=== PATIENT | female | born 1975 | race African-American/Black ===

== ENCOUNTER 2018-09-18 11:09 | Emergency (ER) | payer MEDICAID ==
[~2018-09-18] VITALS: Ht 154.9 cm; Wt 85.0 kg
[~2018-09-18 11:09] MED LIST: CLIN300C11 PO; DM/P295L17; IBUP-2030 PO; OMEP40CA34 PO; PROP10TA10 PO; [UNRECOGNIZED DRUG - CODE]
[2018-09-18] MEDS ORDERED: LORAZEPAM 2MG/ML CPJ IV STA (12:19)
[2018-09-18] MEDS ORDERED: FOLIC ACID 1 MG, THIAMINE HCL 100 MG, MVI, ADULT NO.1 10 ML in DEXTROSE 5% WATER 1,000 ML IV ONE ×4 (12:30)
[2018-09-18 12:44] LABS: HEMATOCRIT. 34.4 % (36.0-48.0); HEMOGLOBIN. 10.6 g/dL (12.0-16.0); MEAN CORPUSCULAR HEMOGLOBIN 26.3 pg (28.0-32.0); MEAN PLATELET VOLUME 8.4 fl (7.4-10.4); PLATELET 182 x1000/uL (130-400); RED BLOOD CELL COUNT 4.05 mill/uL (4.2-5.4); RED CELL DISTRIBUTION WIDTH 23.4 % (11.6-14.6)
[2018-09-18 12:45] LABS: CHLORIDE 97 mEq/L (98-107)
[2018-09-18 12:50] LABS: ETHANOL BLOOD < 10 mg/dL
[2018-09-18 12:59] LABS: *AMPHETAMINES SCREEN URINE NEGATIVE (NEGATIVE); *BENZODIAZEPINES SCREEN URINE NEGATIVE (NEGATIVE); *COCAINE SCREEN URINE NEGATIVE (NEGATIVE); METHADONE URINE SCREEN NEGATIVE (NEGATIVE); OPIATES URINE SCREEN NEGATIVE (NEGATIVE)
[2018-09-18 13:00] LABS: PHENCYCLIDINE URINE SCREEN NEGATIVE (NEGATIVE)
[2018-09-18 13:05] LABS: *BARBITURATES SCREEN URINE NEGATIVE (NEGATIVE)
[2018-09-18 13:06] LABS: CANNABINOID URINE SCREEN PRESUMTIVE POSITIVE (NEGATIVE)
[2018-09-18 13:19] LABS: PLATELET ESTIMATE NORMAL
[2018-09-18 16:30] VITALS: BP 117/74
[2018-09-18] MEDS ORDERED: ONDANSETRON HCL 4MG/2ML INJ IV NR (16:30)
[2018-09-18] MEDS ORDERED: KETOROLAC 15MG/ML VIAL IV NR (16:30)
[2018-09-18] MEDS ORDERED: LORAZEPAM 2MG/ML CPJ IV ONE (17:00)
[2018-09-18] MEDS ORDERED: SODIUM CHLORIDE 0.9% 1,000 ML IV ONE (17:00)
[2018-09-18 18:26] LABS: CLARITY URINE CLOUDY (CLEAR); COLOR URINE YELLOW (YELLOW); KETONES URINE 3+ (NEGATIVE); LEUKOCYTE ESTERASE URINE NEGATIVE (NEGATIVE); NITRITE URINE NEGATIVE (NEGATIVE); OCCULT BLOOD URINE TRACE (NEGATIVE); PH URINE 6.5 (4.5-8.0); PROTEIN URINE 2+ (NEGATIVE); SPECIFIC GRAVITY URINE 1.013 (1.005-1.030)
== END 2018-09-18 19:52 | disposition home or self-care (01) ==
LOC: ER 11:09
DX: F10.239 Alcohol dependence with withdrawal, unspecified (principal); Y90.0 Blood alcohol level of less than 20 mg/100 ml; R11.2 Nausea with vomiting, unspecified; R74.0 Nonspecific elevation of levels of transaminase and lactic acid dehydrogenase [LDH]; K70.9 Alcoholic liver disease, unspecified; D64.9 Anemia, unspecified; F12.10 Cannabis abuse, uncomplicated; E87.1 Hypo-osmolality and hyponatremia; F17.200 Nicotine dependence, unspecified, uncomplicated; F31.9 Bipolar disorder, unspecified; Z88.6 Allergy status to analgesic agent
CPT/HCPCS: 36415; 80053; 80305; 80320; 81003; 85025; 93005; 96365; 96375; 96376; 99284; J1885; J2060; J3411; J3490; J7030; J7070; Z7610; G0480

== ENCOUNTER 2019-03-23 00:14 | Emergency (ER) | payer MEDICAID ==
[~2019-03-23] VITALS: Ht 154.9 cm; Wt 94.0 kg
[2019-03-23 01:12] LABS: BASOPHILS % 2.1 % (0.0-2.0); EOSINOPHILS % 2.8 % (0.0-5.0); HEMATOCRIT. 34.8 % (36.0-48.0); HEMOGLOBIN. 11.4 g/dL (12.0-16.0); MEAN CORPUSCULAR HEMOGLOBIN 28.7 pg (28.0-32.0); MEAN CORPUSCULAR VOLUME 87.6 fL (81.0-99.0); MEAN PLATELET VOLUME 8.6 fl (7.4-10.4); MONOCYTES % 7.8 % (2.0-8.0); NEUTROPHILS % 20.3 % (40.0-76.0); PLATELET 230 x1000/uL (130-400); RED BLOOD CELL COUNT 3.97 mill/uL (4.2-5.4); RED CELL DISTRIBUTION WIDTH 20.1 % (11.6-14.6)
[2019-03-23 01:19] LABS: CHLORIDE 112 mEq/L (98-107)
[2019-03-23 01:48] LABS: ETHANOL BLOOD 393 mg/dL
[2019-03-23 01:59] LABS: CLARITY URINE CLEAR (CLEAR); COLOR URINE YELLOW (YELLOW); KETONES URINE NEGATIVE (NEGATIVE); LEUKOCYTE ESTERASE URINE NEGATIVE (NEGATIVE); NITRITE URINE NEGATIVE (NEGATIVE); OCCULT BLOOD URINE TRACE (NEGATIVE); PH URINE 5.5 (4.5-8.0); PROTEIN URINE NEGATIVE (NEGATIVE); SPECIFIC GRAVITY URINE 1.017 (1.005-1.030); UROBILINOGEN URINE 0.2 E.U./dL (0.2-1.0)
[2019-03-23 02:17] LABS: *BARBITURATES SCREEN URINE NEGATIVE (NEGATIVE); *COCAINE SCREEN URINE NEGATIVE (NEGATIVE)
[2019-03-23 02:18] LABS: *AMPHETAMINES SCREEN URINE NEGATIVE (NEGATIVE); CANNABINOID URINE SCREEN NEGATIVE (NEGATIVE); METHADONE URINE SCREEN NEGATIVE (NEGATIVE); OPIATES URINE SCREEN NEGATIVE (NEGATIVE); PHENCYCLIDINE URINE SCREEN NEGATIVE (NEGATIVE)
[2019-03-23 02:25] LABS: *BENZODIAZEPINES SCREEN URINE PRESUMTIVE POSITIVE (NEGATIVE)
[2019-03-24] MEDS ORDERED: ACETAMINOPHEN 650MG/20.3ML UDC PO ONE (01:15)
[2019-03-24] MEDS ORDERED: CHLORDIAZEPOXIDE 25MG CAPSULE PO ONE (10:15)
[2019-03-24] MEDS ORDERED: ACETAMINOPHEN 325MG TABLET PO ONE ×2 (10:15→19:15)
[2019-03-24] MEDS: CHLORDIAZEPOXIDE 5 MG CAPSULE PO NR ×2 (10:35→10:39)
[2019-03-24] MEDS ORDERED: LORAZEPAM 1MG TABLET PO ONE (19:15)
[2019-03-25] MEDS ORDERED: LORAZEPAM 1MG TABLET PO ONE (04:15)
[2019-03-25 20:04] VITALS: BP 124/79
== END 2019-03-25 20:56 ==
LOC: ER 00:14
DX: F10.239 Alcohol dependence with withdrawal, unspecified (principal); Y90.0 Blood alcohol level of less than 20 mg/100 ml; T50.901A Poisoning by unspecified drugs, medicaments and biological substances, accidental (unintentional), initial encounter; Y92.9 Unspecified place or not applicable; R45.851 Suicidal ideations; F32.9 Major depressive disorder, single episode, unspecified; F20.9 Schizophrenia, unspecified; Z59.0 Homelessness; Z88.6 Allergy status to analgesic agent
CPT/HCPCS: 36415; 80053; 80305; 80320; 81003; 81025; 85025; 93005; 99284; Z7610; G0480

== ENCOUNTER 2022-05-20 15:25 | Emergency (ER) | payer MEDICAID, OTHER ==
[~2022-05-20] VITALS: Ht 154.9 cm; Wt 82.0 kg
[~2022-05-20 15:25] MED LIST changes: +ABIL5 PO; +ACET325T52 MT; +ASCO500T20 PO; +BUSP5TAB3 PO; -CLIN300C11 PO; -DM/P295L17; +FERR-63 PO; +FOLI-43 PO; +HYDR-4001 MT; -IBUP-2030 PO; +L25 PO; +MIRT-89 PO; +MULT-230 MT; -OMEP40CA34 PO; +PANT40TA51 MT; -PROP10TA10 PO; +SERT50TA PO; +THIA100T72 PO; -[UNRECOGNIZED DRUG - CODE]
[2022-05-20 15:30] VITALS: BP 127/89
== END 2022-05-20 16:53 | disposition left against medical advice (07) ==
LOC: ER 15:57
DX: Z53.21 Procedure and treatment not carried out due to patient leaving prior to being seen by health care provider (principal); I49.9 Cardiac arrhythmia, unspecified
CPT/HCPCS: 93005

== ENCOUNTER 2022-05-20 16:48 | Emergency (ER) | payer MEDICAID, OTHER ==
[~2022-05-20] VITALS: Ht 167.6 cm; Wt 85.0 kg
[2022-05-20 19:05] LABS: CHLORIDE 96 mEq/L (98-107)
[2022-05-20 19:06] LABS: BASOPHILS % 1.4 % (0.0-2.0); EOSINOPHILS % 0.6 % (0.0-5.0); HEMATOCRIT. 31.2 % (36.0-48.0); HEMOGLOBIN. 9.7 g/dL (12.0-16.0); LYMPHOCYTES % 24.2 % (20.0-50.0); MEAN CORPUSCULAR HEMOGLOBIN 25.2 pg (28.0-32.0); MONOCYTES % 10.1 % (2.0-8.0); NEUTROPHILS % 63.7 % (40.0-76.0); RED BLOOD CELL COUNT 3.85 mill/uL (4.2-5.4); RED CELL DISTRIBUTION WIDTH 25.3 % (11.6-14.6)
[2022-05-20 19:52] LABS: MEAN PLATELET VOLUME 9.3 fl (7.4-10.4); PLATELET 66 x1000/uL (130-400)
[2022-05-20] MEDS ORDERED: POTASSIUM CHLORIDE 20MEQ/PACKET PO ONE (20:15)
[2022-05-20 20:59] LABS: HCG SCREEN NEGATIVE
[2022-05-20] MEDS ORDERED: KETOROLAC 15MG/ML VIAL IV ONE (21:15)
[2022-05-20] MEDS ORDERED: SODIUM CHLORIDE 0.9% 1,000 ML IV ONE (21:15)
[2022-05-20] MEDS ORDERED: ONDANSETRON HCL 4MG/2ML INJ IV ONE (21:15)
[2022-05-20 21:53] VITALS: BP 97/65
[2022-05-20 23:09] LABS: CLARITY URINE CLEAR (CLEAR); COLOR URINE YELLOW (YELLOW); KETONES URINE TRACE (NEGATIVE); LEUKOCYTE ESTERASE URINE TRACE (NEGATIVE); NITRITE URINE NEGATIVE (NEGATIVE); OCCULT BLOOD URINE 1+ (NEGATIVE); PROTEIN URINE TRACE (NEGATIVE); SPECIFIC GRAVITY URINE 1.008 (1.005-1.030)
== END 2022-05-20 23:21 | disposition home or self-care (01) ==
LOC: ER 16:48
DX: E87.6 Hypokalemia (principal); M79.10 Myalgia, unspecified site; R11.2 Nausea with vomiting, unspecified; R42 Dizziness and giddiness; F31.9 Bipolar disorder, unspecified; F20.9 Schizophrenia, unspecified; F10.229 Alcohol dependence with intoxication, unspecified; Z79.899 Other long term (current) drug therapy; Y90.0 Blood alcohol level of less than 20 mg/100 ml
CPT/HCPCS: 36415; 70450; 71045; 80053; 81003; 83880; 84484; 84703; 85025; 93005; 96374; 96375; 99291; C1893; J1885; J2405; J7030; Z7610

== ENCOUNTER 2022-12-31 13:12 | Inpatient (IN) | payer MEDICAID, OTHER ==
[~2022-12-31] VITALS: Ht 154.9 cm; Wt 74.4 kg
[2022-12-31] MEDS ORDERED: MORPHINE SULFATE 4 MG/ML CPJ (NOT FOR IM USE) IV STA (14:19)
[2022-12-31] MEDS ORDERED: ONDANSETRON HCL 4MG/2ML INJ IV STA (14:19)
[2022-12-31] MEDS ORDERED: SODIUM CHLORIDE 0.9% 1,000 ML IV ONE (14:30)
[2022-12-31 14:57] LABS: HEMOGLOBIN. 8.5 g/dL (12.0-16.0); MEAN CORPUSCULAR HEMOGLOBIN 24.7 pg (28.0-32.0); MEAN CORPUSCULAR HGB CONC 30.5 g/dL (31.0-37.0); MEAN CORPUSCULAR VOLUME 81.1 fL (81.0-99.0); MEAN PLATELET VOLUME 9.4 fl (7.4-10.4); PLATELET 73 x1000/uL (130-400); RED BLOOD CELL COUNT 3.45 mill/uL (4.2-5.4); WHITE BLOOD COUNT 3.9 x1000/uL (4.5-11.0)
[2022-12-31 15:03] LABS: CHLORIDE 97 mEq/L (98-107); INDEX HEMOLYSI 1 (1-3); INDEX ICTERIC 1 (1-4); INDEX LIPEMIC 1 (1-3); POTASSIUM 3.4 mEq/L (3.5-5.1); SODIUM 131 mEq/L (136-145)
[2022-12-31 15:05] LABS: DIFFERENTIAL COMMENT 1
[2022-12-31 15:14] LABS: ALANINE AMINOTRANSFERASE 44 IU/L (13-61); ALBUMIN 3.6 g/dL (3.4-5.0); ASPARTATE AMINOTRANSFERASE 86 IU/L (15-37); BILIRUBIN TOTAL 0.7 mg/dL (0.1-1.0); CALCIUM 9.9 mg/dL (8.5-10.1); CARBON DIOXIDE 23 mEq/L (21-32); CREATININE 1.1 mg/dL (0.6-1.3); GLUCOSE 96 mg/dL (70-105); NT PRO B-TYPE NATRIURETIC PEP 73 pg/mL (5-125); PROTEIN TOTAL 8.5 g/dL (6.0-8.3); UREA NITROGEN BLOOD 17 mg/dL (7-21)
[2022-12-31 15:19] LABS: TROPONIN I HIGH SENSITIVITY < 4 ng/L (<54)
[2022-12-31 15:51] LABS: D-DIMER < 0.19 mg/L FEU (<0.50); INR 1.1; PARTIAL THROMBOPLASTIN TIME 24.3 sec (23.4-31.0); PROTHROMBIN TIME 11.7 sec (9.6-11.0)
[2022-12-31 15:52] LABS: ANISOCYTOSIS 4+; HYPOCHROMASIA 1+; NUCLEATED RED BLOOD CELLS 4 /100 WBC; PLATELET ESTIMATE DECREASED
[2022-12-31 16:19] LABS: HCG SCREEN NEGATIVE
[2022-12-31] MEDS ORDERED: MORPHINE SULFATE 4 MG/ML CPJ (NOT FOR IM USE) IV NR (17:30)
[2022-12-31] MEDS ORDERED: ONDANSETRON HCL 4MG/2ML INJ IV NR (17:30)
[2022-12-31] MEDS ORDERED: MORPHINE SULFATE 4 MG/ML CPJ (NOT FOR IM USE) IV ONE (22:00)
[2023-01-01] MEDS: TRAZODONE HCL 50MG TABLET PO SCH ×3 (02:39→21:55)
[2023-01-01 08:00] VITALS: BP 93/55; PULSE 71; RESP 18; TEMP 96
[2023-01-01] MEDS ORDERED: LORAZEPAM 2MG/ML CPJ IV PRN (08:15)
[2023-01-01] MEDS ORDERED: POTASSIUM CHLORIDE 20MEQ TABLET SR PO NR (08:15)
[2023-01-01] MEDS ORDERED: ONDANSETRON HCL 4MG/2ML INJ IV PRN (08:15)
[2023-01-01] MEDS ORDERED: NALOXONE HCL 0.4MG/ML VIAL IV PRN (09:45)
[2023-01-01 09:54] VITALS: BP 96/63; PULSE 82; RESP 18; TEMP 97.8
[2023-01-01] MEDS: FOLIC ACID 1MG TABLET PO SCH (10:53)
[2023-01-01] MEDS: THIAMINE HCL 100MG TABLET PO SCH (10:56)
[2023-01-01] MEDS: HYDROCODONE/ACETAMINOPHEN 10/325MG TABLET PO PRN ×3 (10:56→22:20)
[2023-01-01] MEDS: CEFTRIAXONE 1,000 MG in DEXTROSE 5% WATER 50 ML IV SCH (11:17)
[2023-01-01 12:00] VITALS: BP 91/85; PULSE 74; RESP 18; TEMP 97
[2023-01-01 12:47] LABS: BASOPHILS % 0.6 % (0.0-2.0); EOSINOPHILS % 2.3 % (0.0-5.0); HEMATOCRIT. 24.4 % (36.0-48.0); HEMOGLOBIN. 7.4 g/dL (12.0-16.0); LYMPHOCYTES % 26.4 % (20.0-50.0); MEAN CORPUSCULAR HEMOGLOBIN 24.2 pg (28.0-32.0); MEAN CORPUSCULAR HGB CONC 30.4 g/dL (31.0-37.0); MEAN CORPUSCULAR VOLUME 79.8 fL (81.0-99.0); MEAN PLATELET VOLUME 8.6 fl (7.4-10.4); MONOCYTES % 13.5 % (2.0-8.0); NEUTROPHILS % 57.2 % (40.0-76.0); PLATELET 85 x1000/uL (130-400); RED BLOOD CELL COUNT 3.05 mill/uL (4.2-5.4); WHITE BLOOD COUNT 3.5 x1000/uL (4.5-11.0)
[2023-01-01 12:52] LABS: DIFFERENTIAL COMMENT 1
[2023-01-01 12:53] LABS: ADD RBC MORPHOLOGY NO
[2023-01-01 12:57] LABS: CALCIUM 8.5 mg/dL (8.5-10.1); CHLORIDE 105 mEq/L (98-107); INDEX HEMOLYSI 1 (1-3); INDEX ICTERIC 1 (1-4); INDEX LIPEMIC 1 (1-3); POTASSIUM 3.2 mEq/L (3.5-5.1); SODIUM 135 mEq/L (136-145)
[2023-01-01 13:05] LABS: CARBON DIOXIDE 26 mEq/L (21-32); CREATININE 0.7 mg/dL (0.6-1.3); GLUCOSE 106 mg/dL (70-105); UREA NITROGEN BLOOD 11 mg/dL (7-21)
[2023-01-01 13:31] LABS: TROPONIN I HIGH SENSITIVITY < 4 ng/L (<54)
[2023-01-01 14:24] LABS: HEPATITIS B SURFACE ANTIGEN NEGATIVE
[2023-01-01 14:52] LABS: CLARITY URINE CLEAR (CLEAR); COLOR URINE YELLOW (YELLOW); GLUCOSE URINE NEGATIVE (NEGATIVE); KETONES URINE NEGATIVE (NEGATIVE); LEUKOCYTE ESTERASE URINE TRACE (NEGATIVE); NITRITE URINE NEGATIVE (NEGATIVE); OCCULT BLOOD URINE NEGATIVE (NEGATIVE); PROTEIN URINE NEGATIVE (NEGATIVE); SPECIFIC GRAVITY URINE 1.009 (1.005-1.030)
[2023-01-01 14:53] LABS: HEPATITIS C VIR.AB 0.11 INDEXVAL (0.00-0.80)
[2023-01-01 14:55] LABS: BACTERIA URINE 1+; RBC URINE 0-2 /hpf (0-2); SQUAMOUS EPITHELIAL CELL URINE 1+ /lpf (RARE/1+); YEAST URINE NONE SEEN
[2023-01-01 16:30] VITALS: BP 94/56; PULSE 92; RESP 18; TEMP 96.8
[2023-01-01 20:00] VITALS: BP 103/63; PULSE 80; RESP 18; TEMP 97.8
[2023-01-02] VITALS (12 sets, daily range): BP systolic 89–116; BP diastolic 47–79; PULSE 71–91; RESP 16–20; TEMP 96.8–98.4
[2023-01-02] MEDS: FOLIC ACID 1MG TABLET PO SCH (09:12)
[2023-01-02] MEDS: CEFTRIAXONE 1,000 MG in DEXTROSE 5% WATER 50 ML IV SCH (09:14)
[2023-01-02] MEDS: HYDROCODONE/ACETAMINOPHEN 10/325MG TABLET PO PRN ×3 (09:14→22:25)
[2023-01-02] MEDS: THIAMINE HCL 100MG TABLET PO SCH (09:15)
[2023-01-02] MEDS: TRAZODONE HCL 50MG TABLET PO SCH (21:40)
[2023-01-03] VITALS (7 sets, daily range): BP systolic 90–113; BP diastolic 45–60; PULSE 65–78; RESP 14–20; TEMP 97–98.8; O2SAT 96
[2023-01-03] MEDS: HYDROCODONE/ACETAMINOPHEN 10/325MG TABLET PO PRN ×2 (04:35→10:52)
[2023-01-03 05:49] LABS: CALCIUM 7.9 mg/dL (8.5-10.1); CARBON DIOXIDE 25 mEq/L (21-32); CHLORIDE 106 mEq/L (98-107); GLUCOSE 82 mg/dL (70-105); INDEX HEMOLYSI 1 (1-3); INDEX ICTERIC 1 (1-4); INDEX LIPEMIC 1 (1-3); POTASSIUM 3.6 mEq/L (3.5-5.1); SODIUM 134 mEq/L (136-145); UREA NITROGEN BLOOD 9 mg/dL (7-21)
[2023-01-03 05:58] LABS: CREATININE 0.6 mg/dL (0.6-1.3); TROPONIN I HIGH SENSITIVITY 4 ng/L (<54)
[2023-01-03 07:15] LABS: HEMATOCRIT. 28.3 % (36.0-48.0); MEAN CORPUSCULAR HGB CONC 31.7 g/dL (31.0-37.0); PLATELET 152 x1000/uL (130-400); RED BLOOD CELL COUNT 3.45 mill/uL (4.2-5.4); RED CELL DISTRIBUTION WIDTH 28.5 % (11.6-14.6)
[2023-01-03 07:46] LABS: DIFFERENTIAL COMMENT 1
[2023-01-03] MEDS: CEFTRIAXONE 1,000 MG in DEXTROSE 5% WATER 50 ML IV SCH (08:39)
[2023-01-03] MEDS: THIAMINE HCL 100MG TABLET PO SCH (08:40)
[2023-01-03] MEDS: FOLIC ACID 1MG TABLET PO SCH (08:40)
[2023-01-03 10:23] LABS: *AMPHETAMINES SCREEN URINE NEGATIVE (NEGATIVE); *BARBITURATES SCREEN URINE NEGATIVE (NEGATIVE); *BENZODIAZEPINES SCREEN URINE NEGATIVE (NEGATIVE); *COCAINE SCREEN URINE NEGATIVE (NEGATIVE); CANNABINOID URINE SCREEN NEGATIVE (NEGATIVE); METHADONE URINE SCREEN NEGATIVE (NEGATIVE); PHENCYCLIDINE URINE SCREEN NEGATIVE (NEGATIVE)
[2023-01-03 11:05] LABS: ECSTASY MDMA SCREEN URINE CONF.TEST INDICATED (NEGATIVE)
[2023-01-03 11:06] LABS: OPIATES URINE SCREEN PRESUMTIVE POSITIVE (NEGATIVE)
[2023-01-03] MEDS ORDERED: MAGNESIUM OXIDE 400MG TABLET PO SCH (11:15)
[2023-01-03] MEDS ORDERED: DOCUSATE SODIUM 250MG CAPSULE PO NR (12:30)
[2023-01-03 16:15] LABS: ANISOCYTOSIS 3+; PLATELET ESTIMATE NORMAL
== END 2023-01-03 14:50 | disposition home or self-care (01) | DRG 532 ==
LOC: ER 13:12 → 8WST 22:00
PROVIDERS: ADMIT Internal Medicine; ATTEND Internal Medicine
PROC: 30233N1 Transfusion of Nonautologous Red Blood Cells into Peripheral Vein, Percutaneous Approach (ICD-10-PCS; principal; 2023-01-02)
DX: N93.9 Abnormal uterine and vaginal bleeding, unspecified (principal); D61.818 Other pancytopenia; G90.8 Other disorders of autonomic nervous system; E87.1 Hypo-osmolality and hyponatremia; D25.9 Leiomyoma of uterus, unspecified; E87.6 Hypokalemia; F20.9 Schizophrenia, unspecified; F31.9 Bipolar disorder, unspecified; F10.20 Alcohol dependence, uncomplicated; D72.825 Bandemia; Z88.6 Allergy status to analgesic agent
CPT/HCPCS: 36415; 71045; 74176; 76830; 76856; 80048; 80053; 80305; 80320; 81003; 83735; 83880; 84145; 84484; 84703; 85025; 85379; 86803; 86850; 86900; 86920; 87340; 93005; 93306; 99285; C1893; J0696; J2270; J2405; J7030; J7060; P9016